=== PATIENT | male | born 1965 | race Caucasian/White ===

== ENCOUNTER → 2018-10-26 | Day surgery (SDC) | payer BC ==
[~2018-10-26] MED LIST: Lactated Ringers 1,000 ML IV SCH; Propofol 200 MG/20 ML SDV IV ONE
--- NOTE | 2018-10-26 14:28 | OR ---
DATE OF OPERATION: 10/26/2018 PREOPERATIVE DIAGNOSIS: SCREENING COLONOSCOPY. POSTOPERATIVE DIAGNOSIS: SCREENING COLONOSCOPY. SURGEON: Felipe Dejesus MD PROCEDURE: FULL-LENGTH COLONOSCOPY. ANESTHESIA: JOINTER MACHINE. COMPLICATIONS: None. SPECIMEN: None. FINDINGS: Normal full-length colonoscopy. RECOMMENDATIONS: Followup colonoscopy every 10 years. INDICATIONS: The patient was seen at the request of his primary provider, Yonatan Herron for routine screening colonoscopy. DESCRIPTION OF PROCEDURE: The patient was prepped and draped, placed in the left lateral decubitus position. A lubricated Olympus colonoscope was inserted and easily advanced to the cecum. Direct visualization of the ileocecal valve and appendiceal orifice was accomplished. The bowel prep was fine. Upon withdrawal of the scope, throughout the length of the colon, I could find no signs of any polyps, mass, ulceration, or bleeding sites. No vascular abnormalities or signs of colitis. There were no diverticula. The rectal vault was unremarkable. Retroflexion showed no perianal lesions. The air was suctioned, scope removed without complication. ALANA/CHANTELL /[id number]
== END ==
LOC: CC.SDS 11:14
PROVIDERS: ATTEND Family Medicine
DX: Z12.11 Encounter for screening for malignant neoplasm of colon (principal); E78.5 Hyperlipidemia, unspecified; Z79.82 Long term (current) use of aspirin; Z79.899 Other long term (current) drug therapy
CPT/HCPCS: J2704; J7120